=== PATIENT | male | born 1960 | race Caucasian/White ===

== ENCOUNTER → 2023-12-06 06:28 | Day surgery (SDC) | payer OTHER, SELFPAY | LOC: GI 06:28 | PROVIDERS: ATTENDING PHYSICIAN Internal Medicine Gastroenterology | DX: Z12.11 Encounter for screening for malignant neoplasm of colon (principal); Z86.010 Personal history of colon polyps; K64.8 Other hemorrhoids; K57.30 Diverticulosis of large intestine without perforation or abscess without bleeding; D12.2 Benign neoplasm of ascending colon; K51.40 Inflammatory polyps of colon without complications | CPT/HCPCS: 45385; 88305 ==

== ENCOUNTER → 2024-11-01 13:49 | Outpatient (REF) | payer OTHER, SELFPAY | LOC: HWRAD 13:49 | PROVIDERS: ATTENDING PHYSICIAN Family Medicine | DX: Z87.891 Personal history of nicotine dependence (principal) | CPT/HCPCS: 71271 ==

== ENCOUNTER → 2024-11-20 11:50 | Outpatient (REF) | payer OTHER, SELFPAY | LOC: PET 11:50 | PROVIDERS: ATTENDING PHYSICIAN Family Medicine | DX: R91.1 Solitary pulmonary nodule (principal) | CPT/HCPCS: 78815; A9552 ==

== ENCOUNTER → 2025-02-10 07:51 | Outpatient (REF) | payer OTHER, SELFPAY | LOC: HWRAD 07:51 | PROVIDERS: ATTENDING PHYSICIAN Internal Medicine Critical Care Medicine; FAMILY PHYSICIAN Family Medicine | DX: R91.1 Solitary pulmonary nodule (principal) | CPT/HCPCS: 71250 ==

== ENCOUNTER → 2025-03-19 07:45 | Outpatient (REF) | payer OTHER, SELFPAY | LOC: PET 07:45 | PROVIDERS: ATTENDING PHYSICIAN Internal Medicine Critical Care Medicine | DX: R91.1 Solitary pulmonary nodule (principal) | CPT/HCPCS: 78815; A9552 ==

== ENCOUNTER → 2025-05-12 07:53 | Outpatient (REF) | payer OTHER, SELFPAY | LOC: HWRAD 07:53 | PROVIDERS: ATTENDING PHYSICIAN Internal Medicine Critical Care Medicine; FAMILY PHYSICIAN Family Medicine | DX: R91.1 Solitary pulmonary nodule (principal) | CPT/HCPCS: 71250 ==